=== PATIENT | female | born 1990 ===

== ENCOUNTER 2017-10-19 13:08 | Emergency (ER) | payer BC ==
[2017-10-19 13:38] VITALS: RESP 18
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
[2017-10-19] MEDS ORDERED: DiphenhydrAMINE 50 mg/ml Inj IM STA (14:37)
[2017-10-19 15:54] VITALS: BP 114/75; PULSE 65; TEMP 98.2
[2017-10-21 11:17] VITALS: O2SAT 99
== END 2017-10-19 15:54 | disposition home or self-care (01) ==
LOC: C.ER 13:08
DX: T78.49XA Other allergy, initial encounter (principal); X58.XXXA Exposure to other specified factors, initial encounter

== ENCOUNTER 2017-11-04 19:26 | Emergency (ER) | payer BC ==
[2017-11-04 19:41] VITALS: BP 149/94; PULSE 102; RESP 22; TEMP 98.1; O2SAT 95
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
== END 2017-11-04 22:10 | disposition home or self-care (01) ==
LOC: C.ER 19:26
DX: S13.4XXA Sprain of ligaments of cervical spine, initial encounter (principal); V49.49XA Driver injured in collision with other motor vehicles in traffic accident, initial encounter; Y92.410 Unspecified street and highway as the place of occurrence of the external cause
CPT/HCPCS: 96372; 99284; J1885